=== PATIENT | male | born 1985 | race Caucasian/White ===

== ENCOUNTER 2023-11-01 21:00 | Emergency (ER) | payer MEDICAID, SELFPAY ==
--- NOTE | ~2023-11-01 | CT_ITS ---
EXAMINATION: CT ANGIOGRAM HEAD CT ANGIOGRAM NECK CLINICAL INFORMATION: Reason for Exam aphasia, leg weakness COMPARISON: Same-day CT head TECHNIQUE: Initial noncontrast insurance agency manager imaging of the head and neck was performed. Comparison is made with noncontrast head CT from earlier today. Test bolus sequences followed by intravenous administration 70 mL of Omnipaque 350. Helical imaging was performed in the axial plane from the aortic arch to the skull vertex. Delayed postcontrast imaging of the head was also performed. The data was processed at the certified nuclear medicine technologist's workstation for generation of MIP sequences. Angled MIPs and volume rendered reformatted images were also generated at an offline 3D workstation. Stenoses are assessed in accordance with Eckert et al. Quantification of Carotid Stenosis on CT Angiography. AJR 2006. 27(1):13-19. This CT examination was performed using dose optimization techniques as appropriate, variously including the following: *Automated exposure control *Adjustment of mA and/or kV according to patient size (this includes techniques or standardized protocols for targeted exams where dose is matched to indication/reason for exam; i.e. extremities or head) *Use of iterative reconstruction technique DLP: 1578.14 mGy-cm mGy-cm FINDINGS: CT HEAD: No abnormal intracranial enhancement. Please see separately dictated CT scan of the head for additional intracranial findings. CTA HEAD: Anterior circulation: Right internal carotid artery: No hemodynamically significant stenosis. Right middle cerebral artery: No hemodynamically significant stenosis. Right anterior cerebral artery: No hemodynamically significant stenosis. Left internal carotid artery: No hemodynamically significant stenosis. Left middle cerebral artery: No hemodynamically significant stenosis. Left anterior cerebral artery: No hemodynamically significant stenosis. Posterior circulation: Right vertebral artery: No hemodynamically significant stenosis. Left vertebral artery: No hemodynamically significant stenosis. Basilar artery: No hemodynamically significant stenosis. Right posterior cerebral artery: Diminutive P1 segment with patent posterior communicating artery. Left posterior cerebral artery: No hemodynamically significant stenosis. No high flow vascular malformation or significant aneurysmal dilatation is visualized. The major dural venous sinuses are grossly within normal limits given arterial technique. CTA NECK: Aortic arch: The left vertebral artery arises directly from the aorta. Right common carotid artery: No hemodynamically significant stenosis. Right proximal internal carotid artery: No hemodynamically significant stenosis. Right mid/distal internal carotid artery: No hemodynamically significant stenosis. Left common carotid artery: No hemodynamically significant stenosis. Left proximal internal carotid artery: No hemodynamically significant stenosis. Left mid/distal internal carotid artery: No hemodynamically significant stenosis. Right vertebral artery: No hemodynamically significant stenosis. Left vertebral artery: No hemodynamically significant stenosis. CT NECK: Dextrocurvature of the cervical spine. CT/CT angio head neck stroke IMPRESSION: CTA NECK: No hemodynamically significant stenosis. CTA HEAD: No proximal vessel occlusion or high-grade stenosis. This critical result was discussed with Dr. Egan at 9:53 hours on 11/01/2023. It was ascertained that the content and urgency of the report was understood at the time of direct communication.
--- NOTE | ~2023-11-01 | CT_ITS ---
EXAMINATION: CT HEAD WITHOUT CONTRAST (STROKE PROTOCOL) CLINICAL INFORMATION: Aphasia. Leg weakness. COMPARISON: None. TECHNIQUE: Contiguous axial imaging was performed from the skull base to vertex without intravenous administration of contrast. Coronal and sagittal reformatted images are performed at the CT scanner. [This CT examination was performed using dose optimization techniques as appropriate, variously including the following: *Automated exposure control *Adjustment of mA and/or kV according to patient size (this includes techniques or standardized protocols for targeted exams where dose is matched to indication/reason for exam; i.e. extremities or head) *Use of iterative reconstruction technique] DLP: 769 mGy-cm. FINDINGS: There is no evidence of acute intracranial hemorrhage or territorial infarction. No abnormal mass-effect or midline shift is seen. Parkinson to white matter differentiation is well preserved. No extra-axial fluid collections are identified. The ventricles are normal in size. There is no abnormal attenuation within the brain parenchyma. There is no osseous abnormality. The mastoid air cells and visualized portions of the paranasal sinuses are well-aerated. CT/CT head for stroke IMPRESSION: No acute intracranial pathology. This critical result was discussed with Dr. Egan at 2124 hours on 11/01/2023. It was ascertained that the content and urgency of the report was understood at the time of direct communication.
--- NOTE | 2023-11-01 21:04 | ECG_ITS ---
Test Reason : ?STROKE Blood Pressure : / mmHG Vent. Rate : 066 BPM Atrial Rate : 066 BPM P-R Int : 198 ms QRS Dur : 086 ms QT Int : 392 ms P-R-T Axes : 039 046 032 degrees QTc Int : 410 ms Normal sinus rhythm Normal ECG When compared with ECG of 10-MAY-2016 22:57, No significant change was found Referred By: Rebecca Egan Electronically Signed By:Mitch Bradley
--- NOTE | 2023-11-01 21:24 | ED.NEUROSD ---
HPI - Neuro Symptoms/Deficit General Chief Complaint: Stroke Stated Complaint: STROKE ALERT,LKWT 1630, BILAT WEAKNESS Time Seen by Provider: 11/01/23 21:01 Source: patient Mode of arrival: EMS Limitations: other (poor historian) History of Present Illness HPI Narrative: 38 yo male who states prior L sided weakness from stroke at [facility] due to substance abuse but then will not elaborate more - he then states he takes aspirin and metoprolol because of it. He is at [facility] for depression he comes in with c/o bilateral leg weakness and stuttering of words starting at 430pm. He denies trauma or headstrike. Symptoms have been consistent. Onset (ago): hour(s) (430pm. ) Timing confirmed by: caregiver Location: speech, left leg and right leg History of same: Yes Severity: mild Quality: weak Relieving factors: none Exacerbating factors: none Context: gradual onset On Anticoagulants: No Associated symptoms: denies other symptoms Treatments Prior to Arrival: none Related Data Allergies Allergy/AdvReac Type Severity Reaction Status Date / Time acetaminophen [From VICODIN] Allergy Unknown UNKNOWN Verified 11/01/23 21:38 hydrocodone [From VICODIN] Allergy Unknown UNKNOWN Verified 11/01/23 21:38 ibuprofen [IBUPROFEN] Allergy Unknown UNKNOWN Verified 11/01/23 21:38 morphine [MORPHINE] Allergy Unknown UNKNOWN Verified 11/01/23 21:38 trazodone Allergy Hives Verified 11/01/23 21:38 Review of Systems Review of Systems: Constitutional : No Fever, No Chills, No Fatigue ENT/Mouth : No sore throat, No Rhinorrhea Eyes: No Eye Pain, No Swelling, No Redness Cardiovascular : No Chest Pain, No SOB, No Dyspnea on Exertion Respiratory : No Cough, No Sputum Gastrointestinal : No Nausea, No Vomiting, No Diarrhea, No abdominal Pain Genitourinary : No Dysuria, No Urinary Frequency, No Hematuria, Musculoskeletal : No joint pain, No Myalgias, No Joint Swelling Skin : No Skin Lesions, No rash Neuro : pos Weakness, No Numbness, No Dizziness, no Headache Psych : No Anxiety/Panic, No Depression Heme/Lymph: No Bruising, No Bleeding,No Lymphadenopathy Endocrine : No Polyuria, No Polydipsia All other systems reviewed and are negative PMFSH Past Medical History Attestation statement: The following information was validated with the patient. Source: old records reviewed Medical History Depression Substance abuse CVA (cerebral vascular accident) Social History Social History (Updated 11/01/23 @ 21:29 by Rebecca Egan DO) Patient Tobacco Use Status: Tobacco use Unknown Smoked in Last 30 Days: No Use of substances other than those prescribed or required for medical reasons: No Advance Directives: No Advance Directives Information Provided: No Physical Exam Vital Signs: Vital Signs: Last Vital Signs Temp 97.8 F 11/01/23 22:34 Pulse 75 11/01/23 22:34 Resp 18 11/01/23 22:34 BP 125/78 11/01/23 22:34 Pulse Ox 98 11/01/23 22:34 O2 Del Method Room Air 11/01/23 22:34 BMI result Body Mass Index 34.4 Appearance: Alert. Oriented X3. No acute distress. Flat affect seems annoyed with questions Eyes: Pupils equal, round and reactive to light. ENT: Pharynx normal. Neck: Normal inspection. Neck supple. CVS: Normal heart rate and rhythm. Pulses normal. Respiratory: No respiratory distress. Breath sounds normal. Abdomen: Soft and nontender. Skin: Skin warm and dry. Normal skin color. Normal skin turgor. Extremities: No lower extremity edema. No calf ttp Neuro: Oriented X 3. intermittent mild stuttering but then is fluent EMS reports it fluctuates. Mild LUE drift he reports is baseline No sensory deficit. Course Course Course Narrative: repeat calls to [facility] no records tonight Medications Administered Discontinued Medications Generic Name Dose Route Start Last Admin Trade Name Oralia PRN Reason Stop Dose Admin Iohexol 100 ml 11/01/23 21:29 11/01/23 21:29 Iohexol 350 Mg/Ml 100 Ml Infus..Btl IV 11/01/23 21:30 70 ml ONCE ONE Administration Medical Decision Making Medical Decision Making MDM Narrative: 38 yo male with PMH of depression, stroke in past but difficult to ascertain what happened - records from [facility] requested, at this time out of window for TNK started at 430 he is here at 5 hours after the fact will obtain T head and CTA will monitor and obtain EKG and further workup as well as [facility] records. Differential Diagnosis Differential Diagnoses: The differential diagnosis associated with the presentation includes anxiety, weakness, lyte abnormality, stroke symptoms Admission/Observation Consideration of admission/observation: Escalation of care including admission/observation considered CT head and CTA negative no old stroke seen his deficits are baseline I see no new deficits he is not in afib he is already on aspirin stuttering no longer noted and it was intermittent and not consistent on exam it was not dysarthria/aphasia L sided weakness is baseline at this time will DC home and instruct him to increase aspirin and follow up with his providers. Lab Data MDM Lab Attestation statement: I reviewed the patient's lab results. 11/01/23 21:46 11/01/23 21:46 Labs: Lab Results 11/01/23 11/01/23 Range/Units 21:41 21:46 WBC 9.5 (4.8-10.8) X10*3/uL RBC 4.73 (4.60-5.80) X10*6/uL Hgb 14.0 (14.0-18.0) g/dl Hct 41.0 L (42.0-52.0) % MCV 86.7 (80.0-98.0) fL MCH 29.6 (27.0-33.0) pg MCHC 34.1 (31.0-36.0) g/dl RDW 13.3 (11.0-16.0) % Plt Count 233 (160-400) X10*3/uL MPV 11.5 (9.4-12.4) fL Immature Gran % (Auto) 0.4 (0.0-0.4) % Neut % (Auto) 55.3 (45-73) % Lymph % (Auto) 33.5 (20-40) % Russell % (Auto) 7.6 (2-11) % Eos % (Auto) 2.6 (0-4) % Baso % (Auto) 0.6 (0-2) % Lymph # (Auto) 3.2 (1.2-4.9) X10*3/uL Russell # (Auto) 0.7 (0.1-1.2) X10*3/uL Eos # (Auto) 0.3 (0.0-0.4) X10*3/uL Baso # (Auto) 0.1 (0.0-0.2) X10*3/uL Abs Immat Gran (auto) 0.04 H (0.00-0.03) X10*3/uL Absolute Neuts (auto) 5.3 (2.0-8.3) x10*3/uL Absolute Nucleated RBC 0.000 (0.0-0.012) X10*3/uL Nucleated RBC % (auto) 0.0 (0.0-0.2) /100WBC PT 10.8 L (11.1-13.3) SEC INR 0.9 (0.9-1.1) Sodium 140 (135-145) mmol/L Potassium 4.2 (3.3-5.1) mmol/L Chloride 107 (96-108) mmol/L Carbon Dioxide 27 (22-29) mmol/L Anion Gap 10 L (12-20) BUN 8 L (9-16) mg/dL Creatinine 0.82 (0.5-1.4) mg/dL Estim Creat Clear Calc 140.3 Estimated GFR > 60 POC Glucose 96 (60-115) mg/dL Random Glucose 97 (60-115) mg/dL Calcium 9.3 (8.4-10.2) mg/dL Magnesium 2.0 (1.6-2.6) mg/dL Total Bilirubin 0.2 (0.0-1.0) mg/dL Direct Bilirubin < 0.2 (0.0-0.5) mg/dL AST 12 (5-37) U/L ALT 15 (0-40) U/L Alkaline Phosphatase 125 H (39-117) U/L Troponin I High Sens < 2.7 (<3.5-35.0) ng/L Total Protein 7.5 (6.5-8.0) g/dL Albumin 4.1 (3.5-5.0) g/dL Urine Color Yellow Urine Appearance Clear Urine pH 7.5 (5.0-9.0) Ur Specific [place] 1.015 (1.005-1.025) Urine Protein Negative (Neg-Trace) mg/dL Urine Glucose (UA) Negative (Negative) mg/dL Urine Ketones Negative (Negative) mg/dL Urine Blood Negative (Negative) Urine Nitrite Negative (Negative) Ur Leukocyte Esterase Negative (Negative) Urine Opiates Screen Not Detected (Not Detect) Urine Fentanyl Screen Not Detected (Not Detect) Ur Barbiturates Screen Not Detected (Not Detect) Ur Phencyclidine Scrn Not Detected (Not Detect) Ur Amphetamines Screen Not Detected (Not Detect) U Benzodiazepines Scrn Not Detected (Not Detect) Urine Cocaine Screen Not Detected (Not Detect) U Marijuana (THC) Screen Not Detected (Not Detect) Independent Interpretation I performed an independent interpretation of an: EKG and CT Scan (no ICH) Interpretation: Rate: 66 Rhythm: NSR Weare: normal Normal P waves. Normal JOSE. Normal QRS complex. ST T wave : normal no JUSTIN qTC: 410 prior studies: no acute ischemia The study has been interpreted contemporaneously by me. . Radiology Impression Discussion of test interpretation with radiology: I discussed test interpretation with the radiologist and I have reviewed the radiologist's reading. Radiologist Impression: 924pm - no ICH 953pm - no LVO Independent Historian Clinical information obtained from an independent historian. History obtained from or confirmed by: EMS External Record Review External record reviewed: Outpatient record Prescription Management I considered prescription management with: Other NIH Stroke Scale Internal: Initial- Upon Arrival Level of Consciousness: Alert Level of Consciousness Questions: Answers both questions correctly Level of Consciousness Commands: Performs both tasks correctly Best Gaze: Normal Visual: No visual loss Facial Palsy: Normal Motor Arm (Right): No drift Motor Arm (Left): Drift Motor Leg (Right): No drift Motor Leg (Left): No drift Limb Ataxia: Absent Sensory: Normal Best Language: No aphasia Dysarthia: Normal Extinction and Inattention: No abnormality Score: 1 Critical Care Time Critical Care Time Critical Care Time: Yes Total Critical Care Time: 35 Attestation: sylvia moore stroke protocol and spoke to radiology, EMS discussion I attest to this time spent taking care of the patient Discharge Plan Discharge Clinical Impression: Weakness Patient Disposition: Home, Self-Care Instructions: Weakness (ED) Additional Instructions: CT head and CTA negative EKG normal no new deficits noted continue therapies would consider increasing his aspirin from 81mg to 325mg daily if he has persistent symptoms Print Language: Slovenian
[2023-11-01] MEDS: iohexoL 350 MG/ML 100 ML INFUS..BTL IV (21:29)
[2023-11-01 21:32] VITALS: BP 129/94; BP 134/81; PULSE 77; PULSE 78; RESP 20; TEMP 36.4; O2SAT 96; BMI 34.4
[2023-11-01 21:45] VITALS: BP 144/79; PULSE 75; RESP 16; TEMP 36.7; O2SAT 98
--- NOTE | 2023-11-01 21:48 | PC.NURSE ---
pt mayra from [facility], stroke alert called by EMS. LWK [id number]. pt reports onset of bilateral x4 extremity tingling and staff reported slurred speech. pt has hx of stroke 6 years ago, reports left sided defitis and occasional slurred speech, pt reports being on asprin. upon arrival pt a&ox4, at bedside doing neuro assessment, pt taken to CT with this RN immediately. 20G placed in right AC for CT. pt on section 21- denies SIx4 days according to staff. pt Normal sinus on tele 70-75bpm.
[2023-11-01 21:56] LABS: Glucose, Whole Blood 96 mg/dL (60-115)
[2023-11-01 21:56] LABS: MANUAL DIFF FLAG NO
[2023-11-01 21:58] LABS: Basophils Absolute Auto 0.1 X10*3/uL (0.0-0.2); Basophils Percent Auto 0.6 % (0-2); Eosinophils Absolute Auto 0.3 X10*3/uL (0.0-0.4); Eosinophils Percent Auto 2.6 % (0-4); Imm Gran Abs Auto 0.04 X10*3/uL (0.00-0.03); Imm Gran Pct Auto 0.4 % (0.0-0.4); Lymphocytes Absolute Auto 3.2 X10*3/uL (1.2-4.9); Lymphocytes Percent Auto 33.5 % (20-40); Mean Corpuscular HGB Conc 34.1 g/dl (31.0-36.0); Mean Corpuscular Hemoglobin 29.6 pg (27.0-33.0); Mean Corpuscular Volume 86.7 fL (80.0-98.0); Mean Platelet Volume 11.5 fL (9.4-12.4); Monocytes Absolute Auto 0.7 X10*3/uL (0.1-1.2); Monocytes Percent Auto 7.6 % (2-11); Neutrophils Absolute Auto 5.3 x10*3/uL (2.0-8.3); Neutrophils Percent Auto 55.3 % (45-73); Platelet Count 233 X10*3/uL (160-400); Red Blood Count 4.73 X10*6/uL (4.60-5.80); Red Cell Distribution Width 13.3 % (11.0-16.0); White Blood Count 9.5 X10*3/uL (4.8-10.8)
[2023-11-01 22:01] LABS: Appearance Urine Clear; Color Urine Yellow; Glucose Urine UA Negative (Negative); Leukocyte Esterase Urine Negative (Negative); Nitrite Urine Negative (Negative); PH 7.5 (5.0-9.0); Specific Gravity - Urine 1.015 (1.005-1.025); Urine Blood Negative (Negative); Urine Ketones Negative (Negative); Urine Protein Negative (Neg-Trace)
[2023-11-01 22:03] LABS: INTERNATIONAL NORM RATIO 0.9 (0.9-1.1); Prothrombin Time 10.8 SEC (11.1-13.3)
[2023-11-01 22:10] LABS: Amphetamine Screen Urine Not Detected (Not Detect); Barbiturates, Urine Not Detected (Not Detect); Benzodiazepines Screen Urine Not Detected (Not Detect); Cannabinoid Screen Urine Not Detected (Not Detect); Cocaine Screen Urine Not Detected (Not Detect); Fentanyl, urine Not Detected (Not Detect); Opiate Screen Urine Not Detected (Not Detect); Phencyclidine Screen Urine Not Detected (Not Detect)
[2023-11-01 22:17] LABS: Alanine Aminotransferase 15 U/L (0-40); Albumin Level 4.1 g/dL (3.5-5.0); Alkaline Phosphatase 125 U/L (39-117); Anion Gap 10 (12-20); Aspartate Amino Transferase 12 U/L (5-37); Bilirubin Direct < 0.2 mg/dL (0.0-0.5); Bilirubin Total 0.2 mg/dL (0.0-1.0); Blood Urea Nitrogen 8 mg/dL (9-16); Calcium 9.3 mg/dL (8.4-10.2); Carbon Dioxide 27 mmol/L (22-29); Chloride 107 mmol/L (96-108); Creatinine Clr Calc Pharmacy 140.3; Estimated Glomerular Filt Rate > 60; Glucose Random 97 mg/dL (60-115); Potassium 4.2 mmol/L (3.3-5.1); Sodium 140 mmol/L (135-145); Total Protein 7.5 g/dL (6.5-8.0)
[2023-11-01 22:24] LABS: Troponin-I High Sensitivity < 2.7 ng/L (<3.5-35.0)
--- NOTE | 2023-11-01 22:26 | PC.NURSE ---
pt changed over at this time, clothing secured in POD closet, 1:1 sitter.
[2023-11-01 22:34] VITALS: BP 125/78; PULSE 75; RESP 18; TEMP 36.6; O2SAT 98
--- NOTE | 2023-11-01 23:32 | PC.NURSE ---
report given to Allen Abebe RN at this time.
[2023-11-02 02:30] VITALS: BP 139/88; PULSE 76; RESP 12; TEMP 36.7; O2SAT 98
[2023-11-02 03:14] VITALS: BP 139/88; PULSE 76; RESP 12; TEMP 36.7; O2SAT 98
== END 2023-11-02 03:15 | disposition home or self-care (01) ==
PROVIDERS: Emergency Provider Emergency Medicine; PCP Internal Medicine
DX: R13.0 Aphagia (principal); M79.605 Pain in left leg; M79.604 Pain in right leg; F33.1 Major depressive disorder, recurrent, moderate; R53.1 Weakness; F98.5 Adult onset fluency disorder; R51.9 Headache, unspecified; R29.701 NIHSS score 1; Z79.899 Other long term (current) drug therapy
CPT/HCPCS: 36415; 70450; 70496; 70498; 80048; 80076; 80307; 81003; 82947; 83735; 84484; 85025; 85610; 93005; 99285; Q9967

== ENCOUNTER → 2023-11-01 21:04 | Outpatient (BNV) | payer MEDICAID, SELFPAY | PROVIDERS: Emergency Provider Emergency Medicine; Visit Provider Internal Medicine Cardiovascular Disease | DX: R53.1 Weakness (principal) | CPT/HCPCS: 93010 ==